=== PATIENT | male | born 2000 | race Caucasian/White ===

== ENCOUNTER 2024-08-18 02:29 | Inpatient (IN) ==
--- NOTE | 2024-08-18 03:16 | Emergency Department Note ---
ED DC CONDITION Conditon at Discharge Condition at Discharge: Good Impression & Plan Schizophrenia ED Provider Note Name: BRAULIO MONTOYA Age: 24 Sex: Male Arrives Via: Walk-In Informant: [Patient][] ED Provider: Donato Garcia MD Chief Complaint: [] Impression: [] Medical Decision Makin-year-old gentleman arrives for mental health evaluation. Patient decompensating schizophrenia as an outpatient. Increasing bizarre behavior and parents are highly concerned regarding this. Patient is agreeable to hospitalization. Medically he is cleared at this time. He did recently have significant trauma that he inflicted on himself by running in the [place]. He had an L2-L3 compression fracture which he reports did not have any restrictions surrounding it. He does not need to wear a brace. He furthermore has a significant number of fractures of the right foot for which she is wearing a boot. There is no metal in the boot. Laboratory workup does show mildly elevated white blood cell count. I think this is consistent with the fact that he has been acting somewhat erratically not eating and drinking as well. Reportedly has had some on and off vomiting the last few weeks. On examination he has a soft nontender abdomen and is in no distress. He is eating and drinking while here in the department in no distress. I do not feel that there is clear evidence of infection. He has no fevers or other concerning signs or symptoms. Urinalysis does not show an infection. He has clear lungs. Patient with soft, non-tender abdomen. Unclear why patient may have been vomiting periodically but no vomiting here and given he is currently drinking without issue and has soft abdomen no emergent indication for work-up of this at this time. Potassium is just mildly below normal at 3.3. He does replaced with 20 millequivalents potassium. I think it is reasonable to have patient hospitalized. Signed out to morning provider. Triage/Nursing Notes reviewed by Me External Chart Review by me: no previous Differential:Mood disorder, infection, hypoglycemia, electrolyte abnormalities, cardiac sources, intracerebral event, toxicologic, trauma, neurologic, as well as other pathologies. Vital Signs: reviewed and remarkable for no significant abnormalities Interventions: potassium 20 meq Labs:ED labs Reviewed by me and remarkable for mild hypokalemia Consults:Mental health case management evaluated patient and feel it is reasonable to have inpatient management. Plan: Disposition: Signed out to morning physician Condition: Good History of Present Illness: 24-year-old male arrives for mental health evaluation. Patient recently hospitalized for mental health management following a suicide attempt in which he both broke his foot and back and sustained lacerations to his face. He had been hospitalized for roughly 9 days and discharged 2 days ago. Diagnosis of schizophrenia. On Seroquel. Had been on Abilify in the hospital but is no longer. Since getting home patient with somewhat erratic behavior unstable and parents are feeling very unsafe for him in the house. They note his frequent turning off of all electrical appliances and unplugging things, piling things throughout the house, going out to the yard and picking pieces of grass. They are highly concerned that he is at risk of further harm to himself similar to 2 weeks ago. Patient denies any specific complaints at this time beyond some back discomfort.. Does admit to marijuana use. Admits cigarette use. Denies any other drug or alcohol use. He denies attempting to harm self anything further. Past Medical History: Schizophrenia Home Medications: Seroquel Allergies: No known drug allergy Vitals:Blood Pressure: 138/77, Pulse 112, RR 17, T 36.8C, O2 100% on RA Physical Exam: GENERAL: Patient is distant appearing and in minimal distress. RESPIRATORY: No dyspnea. Clear to auscultation and equal bilaterally. CARDIOVASCULAR: Regular rate and rhythm.No murmur appreciated. GASTROINTESTINAL: Abdomen soft, non-tender, no peritonitis. EXTREMITIES: Normal motion all extremities, no cyanosis, no edema. NEUROLOGIC: Alert and oriented. No focal neurologic deficits appreciated SKIN: No rash, no jaundice, no diaphoresis. PSYCH: Patient is a bit distant with odd affect. He is denying any hallucinations or suicidal ideation or homicidal ideation. GCS: 15 ED Course: Times/Reassessments: Patient stable. He has a very unusual affect he is frequently asking for more water and coffee to drink though is relatively easily redirectable. Donato Garcia MD Past Med/Surg History Problem List (Updated 08/19/24 @ 03:04 by Donato Garcia MD) Foot fracture, right Fracture of lumbar spine Unspecified psychosis not due to a substance or known physiological condition Schizophrenia (Acute) Cannabis use disorder, severe, in early remission Social History Smoking Status: Current every day smoker Preferred Language: Croatian Communication Ability: Effective Stone Cutter Required: No Beliefs That Will Affect Care: None Feels Safe at Home: Yes Gender Identity: Male Assistive Devices: Brace/Splint/Immobilizer Assistive Devices Comment: BOOT ON RIGHT FOOT D/T CLOSED FRACTURE Allergies Allergies Allergy/AdvReac Type Severity Reaction Status Date / Time No Known Allergies Allergy Unverified 04/16/23 10:55 Home Meds Home Medications Medication Instructions Recorded Confirmed famotidine 20 mg tablet 20 mg PO DAILY 08/18/24 08/18/24 propranolol 20 mg tablet 20 mg PO DAILY 08/18/24 08/18/24 quetiapine 100 mg tablet 100 mg PO HS 08/18/24 08/18/24 quetiapine 25 mg tablet (Seroquel) 25 mg PO BID 08/18/24 08/18/24 Results & Data (ED) Vital Signs Vital Signs - 24 hr 08/18/24 06:33 08/18/24 07:37 Pulse Rate [Finger] 99 H 97 H Respiratory Rate 18 16 Respiratory Effort / Characteristics Non-Labored Spontaneous Non-Labored Spontaneous Respiratory Depth Normal Normal Respiratory Pattern Regular Blood Pressure [Right Arm] 132/75 145/81 H Blood Pressure Mean [Right Arm] 94 102 Blood Pressure Position [Right Arm] Lying Pulse Oximetry 97 99 Oxygen Delivery Method Room Air Room Air Laboratory Data 08/18/24 03:00 08/18/24 03:00 Lab Results 08/18/24 08/18/24 Range/Units 02:00 03:00 WBC 12.79 H (4.8-10.8) K/ul RBC 4.58 L (4.70-6.10) M/uL Hgb 14.2 (14.0-18.0) g/dl Hct 40.8 L (42.0-52.0) % MCV 89.1 (80.0-100.0) fL MCH 31.0 (25.0-34.0) pg MCHC 34.8 (32.0-36.0) g/dL RDW Std Deviation 40.0 (36.4-46.3) fL RDW Coeff of Teja 12.3 (11.5-14.5) % Plt Count 382 (130-400) K/uL MPV 9.2 L (9.4-12.4) fL Immature Gran % (Auto) 0.5 % Neut % (Auto) 74.8 % Lymph % (Auto) 14.5 % [place] % (Auto) 9.6 % Eos % (Auto) 0.2 % Baso % (Auto) 0.4 % Neut # (Auto) 9.56 H (1.40-6.50) K/uL Lymph # (Auto) 1.85 (1.20-3.40) K/uL [place] # (Auto) 1.23 H (0.11-0.59) K/uL Eos # (Auto) 0.03 (0.00-0.50) K/uL Baso # (Auto) 0.05 (0.00-0.20) K/uL Immature Gran # (Auto) 0.07 (0.01-0.20) K/uL Sodium 136 (136-145) mmol/L Potassium 3.3 L (3.5-5.1) mmol/L Chloride 96 L (98-107) mmol/L Carbon Dioxide 31 (21-32) mmol/L Anion Gap 9 (3-11) BUN 11 (6-23) mg/dl Creatinine 0.82 (0.6-1.4) mg/dl Est Cr Clr Drug Dosing 158.9 ml/min eGFR 125.80 BUN/Creatinine Ratio 13.4 (10-20) Glucose 113 H (70-99(Fasting)) mg/dl Calcium 9.5 (8.6-10.3) mg/dl Total Bilirubin 0.7 (0.2-1.0) mg/dl AST 36 (13-39) U/L ALT 23 (7-52) U/L Alkaline Phosphatase 100 (34-104) U/L Total Protein 7.5 (6.0-8.3) gm/dl Albumin 4.7 (3.4-5.0) gm/dl Globulin 2.8 (2.5-4.0) gm/dl Albumin/Globulin Ratio 1.7 (0.9-2) TSH 0.586 (0.300-4.500) uIu/ml Urine Color Yellow Urine Appearance Clear (Clear) Urine pH 7.5 (4.5-7.5) Ur Specific [place] 1.004 (1.000-1.030) Urine Protein Negative (Negative) Urine Glucose (UA) Negative (Negative) Urine Ketones Negative (Negative) Urine Blood Negative (Negative) Urine Nitrite Negative (Negative) Urine Bilirubin Negative (Negative) Urine Urobilinogen Negative (Negative) Ur Leukocyte Esterase Negative (Negative) Salicylates < 3.0 L (3.0-30) mg/dl Urine Opiates Screen Neg (Neg) Ur Methadone, Qual Neg (Neg) Urine Fentanyl Screen Neg (Neg) Acetaminophen < 3 L (10-30) ug/ml Urine Barbiturates Neg (Neg) Ur Phencyclidine (PCP) Neg (Neg) U Amphetamin/Meth Scrn Neg (Neg) MDMA (Ecstasy) Screen Neg (Neg) U Benzodiazepines Scrn Neg (Neg) Ur Cocaine Metabolite Neg (Neg) U Marijuana (THC) Screen Neg (Neg) Ethyl Alcohol mg/dL < 10.0 (<10.0) mg/dl SARS-CoV-2, RNA, NAAT NEGATIVE (NEGATIVE) Administered Medications Acetaminophen (Acetaminophen 325 Mg Tab) 650 mg PO Q4H PRN PRN Reason: Headache or Minor Fever Stop: 09/17/24 10:07 Last Admin: 08/18/24 16:56 Dose: 650 mg Documented By: RB Aripiprazole (Aripiprazole 5 Mg Tab) 5 mg PO [facility] Stop: 09/17/24 14:59 Last Admin: 08/18/24 15:25 Dose: 5 mg Documented By: MENDEZ Nicotine (Nicotine 14 Mg/24 Hr Patch) 1 patch TD [facility] Stop: 09/17/24 13:29 Last Admin: 08/18/24 13:55 Dose: 1 patch Documented By: LORELEI Ondansetron HCl (Ondansetron 4 Mg Od Tab) 4 mg PO Q6H PRN PRN Reason: Nausea Stop: 09/17/24 11:26 Last Admin: 08/18/24 20:07 Dose: 4 mg Documented By: Admin: 08/18/24 11:48 Dose: 4 mg Documented By: LORELEI Discontinued Medications Potassium Chloride (Potassium Chloride Crtab 20 Meq Tabcr) 20 meq PO NOW STA Stop: 08/18/24 06:33 Last Admin: 08/18/24 06:50 Dose: 20 meq Documented By: Discharge Plan Visit Data Chief Complaint: Mental Health Evaluation Stated Complaint: MHE ED Provider: Everett Santos Discharge Problem: Schizophrenia Patient Disposition: Admitted As Inpatient Condition: Good Discharge Instructions Interventions: ED Discharge Assessment Last Done: 08/18/24 09:17
[2024-08-18 03:31] LABS: Basophils # (auto) 0.05 K/uL (0.00-0.20); Basophils % (auto) 0.4 %; Eosinophils # (auto) 0.03 K/uL (0.00-0.50); Eosinophils % (auto) 0.2 %; Hematocrit (blood only) 40.8 % (42.0-52.0); Hemoglobin 14.2 g/dl (14.0-18.0); Immature Granulocytes # (auto) 0.07 K/uL (0.01-0.20); Immature Granulocytes % (auto) 0.5 %; Lymphocytes # (auto) 1.85 K/uL (1.20-3.40); Lymphocytes % (auto) 14.5 %; Mean Corpuscular Hgb Conc 34.8 g/dL (32.0-36.0); Mean Corpuscular Volume 89.1 fL (80.0-100.0); Mean Platelet Volume 9.2 fL (9.4-12.4); Monocytes # (auto) 1.23 K/uL (0.11-0.59); Monocytes % (auto) 9.6 %; Neutrophils # (auto) 9.56 K/uL (1.40-6.50); Neutrophils % (auto) 74.8 %; Platelet Count 382 K/uL (130-400); RDW Coefficient of Variation 12.3 % (11.5-14.5); Red Blood Count 4.58 M/uL (4.70-6.10); White Blood Count 12.79 K/ul (4.8-10.8)
[2024-08-18 03:37] LABS: Appearance Urine Clear (Clear); Bilirubin Urine Negative (Negative); Blood Urine Negative (Negative); Color Urine Yellow; Glucose Urine UA Negative (Negative); Ketones Urine Negative (Negative); Leukocyte Esterase Urine Negative (Negative); Nitrite Urine Negative (Negative); Protein Urine Negative (Negative); Specific Gravity Urine 1.004 (1.000-1.030); Urobilinogen Urine Negative (Negative); pH Urine 7.5 (4.5-7.5)
[2024-08-18 03:50] LABS: Albumin Globulin Ratio 1.7 (0.9-2); Albumin Level 4.7 gm/dl (3.4-5.0); BUN Creatinine Ratio 13.4 (10-20); Bilirubin,Total 0.7 mg/dl (0.2-1.0); Calcium 9.5 mg/dl (8.6-10.3); Creatinine Clr Calc Pharmacy 158.9 ml/min; Globulin 2.8 gm/dl (2.5-4.0); Potassium 3.3 mmol/L (3.5-5.1); Total Protein 7.5 gm/dl (6.0-8.3)
[2024-08-18 03:51] LABS: Acetaminophen < 3 ug/ml (10-30); Salicylate < 3.0 mg/dl (3.0-30)
[2024-08-18 04:02] LABS: Thyroid Stimulating Hormone 0.586 uIu/ml (0.300-4.500)
[2024-08-18 04:09] LABS: Amphetamines+Metham, Urine Neg (Neg); Barbiturates, Urine Neg (Neg); Benzodiazepine, Urine Neg (Neg); Cocaine, Urine Neg (Neg); Fentanyl, Urine Neg (Neg); MDMA (Ecstacy), Urine Neg (Neg); Marijuana, Urine Neg (Neg); Methadone, Urine Neg (Neg); Opiate, Urine Neg (Neg); Phencyclidine, Urine Neg (Neg)
[2024-08-18] MEDS: POTASSIUM CHLORIDE CRTAB 20 MEQ TABCR PO STA (06:50)
--- NOTE | 2024-08-18 09:00 | Emergency Department Note ---
ED Visit Note The patient was taken in signout from Dr. Garcia at the change of shift. Please see that note for details. The patient was pending mental health evaluation for psychotic behavior. Patient has a history of psychosis. He was recently discharged from [facility] inpatient [facility] 2 days ago. Patient was evaluated by [address] [place] [address] and was accepted for inpatient treatment. I refer you to the EMR for further details. .
[2024-08-18] MEDS ORDERED: SODIUM CHLORIDE 0.65% NA SOLN 45 ML (OCEAN) PRN (10:08)
[2024-08-18] MEDS ORDERED: ALUMINUM/MAGNESIUM SUSP 30 ML UDC PO PRN (10:08)
[2024-08-18] MEDS ORDERED: BISMUTH SUBSALICYLATE 262 MG CHEW PO PRN (10:08)
[2024-08-18] MEDS: ONDANSETRON 4 MG OD TAB PO PRN (11:48)
[2024-08-18] MEDS ORDERED: NICOTINE POLACRILEX 2 MG GUM MT PRN (13:27)
[2024-08-18] MEDS: NICOTINE 14 MG/24 HR PATCH TD SCH (13:55)
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
[2024-08-18] MEDS: ARIPiprazole 5 MG TAB PO SCH (15:25)
[2024-08-18] MEDS: ACETAMINOPHEN 325 MG TAB PO PRN (16:56)
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
[2024-08-20] MEDS: ARIPiprazole 10 MG TAB PO SCH (07:35)
[2024-08-20 07:53] LABS: Chol HDL Ratio 2.6 (0-5)
[2024-08-20 09:40] LABS: Estimated Average Glucose 108 mg/dl; Hemoglobin A1C 5.4 % (4.5-5.6)
[2024-08-20] MEDS: hydrOXYzine HCl 25 MG TAB PO PRN (13:31)
--- NOTE | 2024-08-20 14:25 | Psychiatric Progress Note ---
Date of Service August 20, 2024 Impression / Recommendations Impression By history, Schizophrenia r/o Cannabis Induced Psychosis. Cannabis Use disorder severe in early remission. (1) Cannabis use disorder, severe, in early remission: (2) Schizophrenia: Plan 08/19/24: Continue Abilify 10 mg daily with plan to titrate the dose and convert to OROPEZA if effective. Continue to monitor fluid intake for now. 08/18/24: Admit to [facility]. Observation: moderate; q15 minute checks. Individual, group and milieu therapy. Standard prns. Resume Abilify at 5mg daily with plan to titrate. If effective, will consider converting this to OROPEZA. Hold Seroquel for now. For vomiting, ordered Zofran 4 mg prn vomiting. Obtain collateral information from mother when pt is available. Overall, I spent a total of 40 minutes on this case including meeting with the patient, reviewing the chart, nursing report, placing orders, gathering collateral and documentation. Suicide Risk Level Suicide Risk Level: Low (q15 min observation checks) Risk Factors Assessment Male: Yes : Yes Do You Have Access To A Gun?: No Health Problems: Yes Mental Health Diagnoses: Yes Substance Use Disorders: Yes Previous Attempt: Yes Family History of Suicide: No Previous Psychiatric Hospitalization: Yes Hopelessness: No Protective Factors Assessment Buddhist Beliefs: No : No Responsible for Young Children: No Employed: No Stable Relationships: Yes Supportive Family: Yes Good Rapport with Provider: Yes Absence of Any Risk Factors Above: No Interval History Identifying Information 24-year-old M who currently lives in [place], [place] with his mother, Sharon ([id number]). He has a history of Schizophrenia and was admitted on 08/18/24 09:25 on a [201 voluntary] commitment for bizarre behavior. Chief Complaint "I am feeling ok". Review of Systems Sleep Information Total Hours of Sleep: 4.5 Sleep Comments: Awoke early in morning Meal Information Percent Meal Consumed - Breakfast: 20 Percent Meal Consumed - Lunch: 0 Percent Meal Consumed - Dinner: 0 Nutrition Comment: pt. declines. Meals dates, labeled and refrigerated. Subjective Subjective Patient was seen & assessed and interval progress reviewed with nursing. He slept well and reports no pain. He remains internally preoccupied, spends a lot of time pacing the unit on his own with headphones on, is guarded, seclusive, with limited participation in unit activities. Denied thoughts of harm to self or others at this time. Denied hallucinations. He is less vague about events leading up to his admission. He denies side effects of his current medication. No further reports of excessive fluid intake. HBA1c and Lipid profile wnl. No further episodes of vomiting. No signs of EPS or akathisia. Pt withdrew the 72 hour notice. Physical Exam Mental Examination Appearance: Disheveled (Wearing a boot on his right leg/foot. Appears internally preoccupied. ) Eye Contact: Maintains Eye Contact Motor Behavior: Unremarkable (Pacing the unit. ) Speech: Soft and Delayed Mood: Anxious Affect: Apprehensive, Flat, Inappropriate and Withdrawn Thought Process: Disorganized, Poverty of Content and Slowed Thinking Hallucinations: None Insight: Poor Judgement: Poor Vital Signs (Past 24 Hours) Last Vital Signs Temp 36.7 C 08/20/24 06:21 Pulse 86 08/20/24 06:23 Resp 18 08/20/24 06:21 BP 127/78 08/20/24 06:23 Pulse Ox 99 08/19/24 13:23 O2 Del Method Room Air 08/19/24 13:23 Results & Data ([facility]) Laboratory Results Laboratory Results - last 24 hr 08/20/24 07:01 Estimat Average Glucose 108 Hemoglobin A1c 5.4 Triglycerides 93 Cholesterol 128 LDL Cholesterol, Calc 60 VLDL Cholesterol, Calc 19 HDL Cholesterol 49 Cholesterol/HDL Ratio 2.6 Current Inpatient Medications Current Inpatient Medications: Current Inpatient Medications Acetaminophen (Acetaminophen 325 Mg Tab) 650 mg PO Q4H PRN PRN Reason: Headache or Minor Fever Stop: 09/17/24 10:07 Last Admin: 08/20/24 09:02 Dose: 650 mg Al Hydrox/Mg Hydrox/Simethicone (Aluminum/Magnesium Susp 30 Ml Udc) 30 ml PO Q4H PRN PRN Reason: GI Upset Stop: 09/17/24 10:07 Aripiprazole (Aripiprazole 10 Mg Tab) 10 mg PO QAM POWER Stop: 09/19/24 08:59 Last Admin: 08/20/24 07:35 Dose: 10 mg Bismuth Subsalicylate (Bismuth Subsalicylate 262 Mg Chew) 2 tab PO Q30M PRN PRN Reason: Loose Stool/Diarrhea Stop: 09/17/24 10:07 Hydroxyzine HCl (Hydroxyzine Hcl 25 Mg Tab) 50 mg PO HSZ PRN PRN Reason: Insomnia Stop: 09/17/24 10:07 Hydroxyzine HCl (Hydroxyzine Hcl 25 Mg Tab) 25 mg PO Q4H PRN PRN Reason: Anxiety Stop: 09/17/24 10:07 Last Admin: 08/20/24 13:31 Dose: 25 mg Magnesium Hydroxide (Magnesium Hydroxide Susp 30 Ml Udc) 30 ml PO DAILY PRN PRN Reason: Constipation Stop: 09/17/24 10:07 Miscellaneous (Remove Nicoderm Patch) 1 each N/A DAILY@0859 [facility] Stop: 09/18/24 08:58 Last Admin: 08/20/24 07:35 Dose: 1 each Nicotine (Nicotine 14 Mg/24 Hr Patch) 1 patch TD QAM [facility] Stop: 09/17/24 13:29 Last Admin: 08/20/24 07:35 Dose: 1 patch Nicotine Polacrilex (Nicotine Polacrilex 2 Mg Gum) 1 piece MT Q2H PRN PRN Reason: smoking cessation Stop: 09/17/24 13:26 Ondansetron HCl (Ondansetron 4 Mg Od Tab) 4 mg PO Q6H PRN PRN Reason: Nausea Stop: 09/17/24 11:26 Last Admin: 08/19/24 13:26 Dose: 4 mg Sodium Chloride (Sodium Chloride 0.65% Na Soln 45 Ml ([place])) 1 - 2 sprays NA PRN PRN PRN Reason: Nasal Dryness/Congestion Stop: 09/17/24 10:07 Mental Health & Subst Abuse Tx Psychiatrist Date Of Appointment With Psychiatric Provider: Therapist Name of Therapist: None Chief Ii Dispatcher Name of Chief Ii Dispatcher: None (2) Schizophrenia Schizophrenia type: unspecified Qualified Code(s): F20.9 - Schizophrenia, unspecified
[2024-08-21 10:40] LABS: Basophils # (auto) 0.05 K/uL (0.00-0.20); Basophils % (auto) 0.4 %; Eosinophils # (auto) 0.03 K/uL (0.00-0.50); Eosinophils % (auto) 0.2 %; Hematocrit (blood only) 42.2 % (42.0-52.0); Hemoglobin 14.3 g/dl (14.0-18.0); Immature Granulocytes # (auto) 0.07 K/uL (0.01-0.20); Immature Granulocytes % (auto) 0.5 %; Lymphocytes # (auto) 2.19 K/uL (1.20-3.40); Lymphocytes % (auto) 16.4 %; Mean Corpuscular Hemoglobin 30.8 pg (25.0-34.0); Mean Corpuscular Hgb Conc 33.9 g/dL (32.0-36.0); Mean Corpuscular Volume 90.8 fL (80.0-100.0); Mean Platelet Volume 8.9 fL (9.4-12.4); Monocytes # (auto) 1.36 K/uL (0.11-0.59); Monocytes % (auto) 10.2 %; Neutrophils # (auto) 9.62 K/uL (1.40-6.50); Neutrophils % (auto) 72.3 %; Platelet Count 410 K/uL (130-400); RDW Coefficient of Variation 12.5 % (11.5-14.5); RDW Standard Deviation 41.2 fL (36.4-46.3); Red Blood Count 4.65 M/uL (4.70-6.10); White Blood Count 13.32 K/ul (4.8-10.8)
[2024-08-21 10:56] LABS: Albumin Globulin Ratio 1.8 (0.9-2); Albumin Level 4.9 gm/dl (3.4-5.0); Bilirubin,Total 0.5 mg/dl (0.2-1.0); Calcium 9.7 mg/dl (8.6-10.3); Creatinine Clr Calc Pharmacy 151.6 ml/min; Globulin 2.7 gm/dl (2.5-4.0); Potassium 3.7 mmol/L (3.5-5.1); Total Protein 7.6 gm/dl (6.0-8.3)
--- NOTE | 2024-08-21 11:24 | Hospitalist Consultation ---
Date of Consultation August 21, 2024 Assessment & Plan (1) Nausea & vomiting: Plan 24 yr M w/ PMHx of schizophrenia and severe cannabis admittied for acute psychotic episode. Patient has N/V, likely due to constipation and unlikely to be d/t cannabis since patient discontinued his marijuana use over a month ago and had a lack of sx while smoking #Nausea/Vomiting - begin 17g Miralax PO daily as tolerated - continue Zofran PRN for nausea - monitor for worsening of symptoms Supervising Physician Co-Signing Physician Notes I personally examined the patient and verified all parks points of history and exam, discussed case, and agree with decision making with Dr Muniz and Mike Ng MS4 vomiting on Wednesday. None since. Somewhat constipated but did have a bowel movement this morning. Notes that he is eating and drinking a bit. No abdominal pain. Vitals noted, in general he is awake and alert pleasant no distress. He is walking the halls whenever I first entered the unit. Abdomen is soft no epigastric tenderness no focal tenderness anywhere no guarding rebound or rigidity. Maybe mild fullness left lower abdomen but without tenderness nausea/vomitingseems to be improving. While cannabis hyperemesis is on the differential, he relates no cannabis use in a month and typically even refractory cases resolve with a month of abstinence. He does note constipation, which is certainly a common cause of nausea and vomitinghe did have a bowel movement todaytherefore while we will utilize MiraLAX to help stay ahead of further constipation, we probably will not need to be very aggressive with it. Start with 17 g dailytitrate as needed. Serial exams, follow p.o. intake. Otherwise as above. History of Present Illness Reason for Consultation: N/V Requesting Physician: Annie Farrar MD Attending Physician: Annie Farrar MD History of Present Illness Pt is a 24 yr M w/ PMHx of schizophrenia and severe cannabis use, currently admitted for acute psychosis episode. Patient has been experiencing nausea and vomiting for a few days prior to admission, with his most recent episode of vomiting being the day of admission (08/19/2023). Nurses mention the vomiting has been intense and projectile, and that patient has caused himself a nosebleed due to the force of vomiting. He says the nausea improves following a hot shower and after bowel movements. He has a history of severe cannabis use, but mentions he has not used in over a month. He has also been constipated, and had his last bowel movement this morning. He denies hematemesis, melena/hematochezia, lightheadedness, abdominal pain, acid reflux. Allergies Allergy/AdvReac Type Severity Reaction Status Date / Time No Known Allergies Allergy Unverified 04/16/23 10:55 Home Medications Medication Instructions Recorded Confirmed Type famotidine 20 mg tablet 20 mg PO DAILY 08/18/24 08/18/24 History propranolol 20 mg tablet 20 mg PO DAILY 08/18/24 08/18/24 History quetiapine 100 mg tablet 100 mg PO HS 08/18/24 08/18/24 History quetiapine 25 mg tablet (Seroquel) 25 mg PO BID 08/18/24 08/18/24 History Patient History Social History Smoking Status: Current every day smoker Preferred Language: Portuguese Communication Ability: Effective Hourly Shift Required: No Beliefs That Will Affect Care: None Feels Safe at Home: Yes Gender Identity: Male Assistive Devices: Brace/Splint/Immobilizer Assistive Devices Comment: BOOT ON RIGHT FOOT D/T CLOSED FRACTURE Review of Systems Review of Systems: All systems reviewed & are unremarkable except as noted in HPI & below Physical Exam Respiratory: normal respiratory effort, lungs clear to auscultation Cardiovascular: RRR, no murmur, no edema Gastrointestinal (Abdomen): normal bowel sounds, soft, nontender, no hepatosplenomegaly Results & Data Results & Data Vital Signs (Past 12 Hours) Vital Signs Temp Pulse Resp BP 08/21/24 06:22 120 H 125/76 08/21/24 06:20 36.5 C 98 H 18 133/84 Resident Supervision Co-Signing Physician Notes I personally examined the patient and verified all parks points of history and exam, discussed case, and agree with decision making with Mike Ng MS4 PE: well appearing, slightly blunted affect, no peritoneal signs Anticipate resolution with MiraLAX. Further work up if symptoms persist. Resident Activity Tracking Resident Involvement: Resident Care Provided Care Provided: Adult [facility] Medicine
--- NOTE | 2024-08-21 11:29 | Billing Data ---
Date of Service August 21, 2024 Coding Level of Care Code 54150 IN/OBS CONSULT LVL 3,45M
[2024-08-21] MEDS: POLYETHYLENE (MIRALAX) 17 GM PACK PO SCH (12:39)
--- NOTE | 2024-08-21 14:21 | Psychiatric Progress Note ---
Date of Service August 21, 2024 Impression / Recommendations Impression By history, Schizophrenia. Baseline unclear as pt has not been free of psychosis for several years, according to his mother's report. r/o Cannabis Induced Psychosis. Cannabis Use disorder severe in early remission. (1) Cannabis use disorder, severe, in early remission: (2) Schizophrenia: Plan 08/21/24: Increase Abilify to 15mg po daily. Have discussed conversion to OROPEZA; pt indicated willingness to do so. Hospitalist consult noted with thanks. "Patient has N/V, likely due to constipation and unlikely to be d/t cannabis since patient discontinued his marijuana use over a month ago and had a lack of sx while smoking #Nausea/Vomiting - begin 17g Miralax PO daily as tolerated - continue Zofran PRN for nausea - monitor for worsening of symptoms" 08/20/24: continue current medication. 08/19/24: Continue Abilify 10 mg daily with plan to titrate the dose and convert to OROPEZA if effective. Continue to monitor fluid intake for now. 08/18/24: Admit to [facility]. Observation: moderate; q15 minute checks. Individual, group and milieu therapy. Standard prns. Resume Abilify at 5mg daily with plan to titrate. If effective, will consider converting this to OROPEZA. Hold Seroquel for now. For vomiting, ordered Zofran 4 mg prn vomiting. Obtain collateral information from mother when pt is available. Overall, I spent a total of 40 minutes on this case including meeting with the patient, reviewing the chart, nursing report, placing orders, gathering collateral and documentation. Suicide Risk Level Suicide Risk Level: Low (q15 min observation checks) Risk Factors Assessment Male: Yes : Yes Do You Have Access To A Gun?: No Health Problems: Yes Mental Health Diagnoses: Yes Substance Use Disorders: Yes Previous Attempt: Yes Family History of Suicide: No Previous Psychiatric Hospitalization: Yes Hopelessness: No Protective Factors Assessment Shinto Beliefs: No : No Responsible for Young Children: No Employed: No Stable Relationships: Yes Supportive Family: Yes Good Rapport with Provider: Yes Absence of Any Risk Factors Above: No Interval History Identifying Information 24-year-old M who currently lives in [place], [place] with his mother, Sharon ([id number]). He has a history of Schizophrenia and was admitted on 08/18/24 09:25 on a [201 voluntary] commitment for bizarre behavior. Chief Complaint "I feel I want to leave". Review of Systems Sleep Information Total Hours of Sleep: 6.5 Sleep Comments: Awoke early in morning Meal Information Percent Meal Consumed - Breakfast: 90 Percent Meal Consumed - Lunch: 90 Percent Meal Consumed - Dinner: 0 Nutrition Comment: pt. declines. Meals dates, labeled and refrigerated. Subjective Subjective Patient was seen & assessed and interval progress reviewed with treatment team. He remains internally preoccupied, pacing the halls, continually. Denied suicidal thoughts and "does not know why" he threw himself against a wall prior to his last admision. Denied current mood symptoms or hallucinations. He is less vague and more interactive with this proposal writer. Staff report he slept well. Peripherally engaged in groups. Social visit went well. Hospitalist consult requested due to projectile vomiting and persistent nausea (predated admission). Pt is willing to try Abilify OROPEZA. He filed another 72 hour notice yesterday. Physical Exam Mental Examination Appearance: Well Groomed (Wearing headphones, internally preoccupied.) Eye Contact: Maintains Eye Contact Motor Behavior: Pacing Speech: Normal and Soft Mood: Anxious Affect: Flat and Withdrawn Thought Process: Goal Oriented, Linear and Poverty of Content Thought Content: Linear Hallucinations: None Insight: Poor Judgement: Poor Vital Signs (Past 24 Hours) Last Vital Signs Temp 36.5 C 08/21/24 06:20 Pulse 120 H 08/21/24 06:22 Resp 18 08/21/24 06:20 BP 125/76 08/21/24 06:22 Pulse Ox 99 08/19/24 13:23 O2 Del Method Room Air 08/19/24 13:23 Results & Data ([facility]) Laboratory Results Laboratory Results - last 24 hr 08/21/24 10:23 WBC 13.32 H RBC 4.65 L Hgb 14.3 Hct 42.2 MCV 90.8 MCH 30.8 MCHC 33.9 RDW Std Deviation 41.2 RDW Coeff of Teja 12.5 Plt Count 410 H MPV 8.9 L Immature Gran % (Auto) 0.5 Neut % (Auto) 72.3 Lymph % (Auto) 16.4 [place] % (Auto) 10.2 Eos % (Auto) 0.2 Baso % (Auto) 0.4 Neut # (Auto) 9.62 H Lymph # (Auto) 2.19 [place] # (Auto) 1.36 H Eos # (Auto) 0.03 Baso # (Auto) 0.05 Immature Gran # (Auto) 0.07 Sodium 138 Potassium 3.7 Chloride 99 Carbon Dioxide 33 H Anion Gap 6 BUN 12 Creatinine 0.86 Est Cr Clr Drug Dosing 151.6 eGFR 124.00 BUN/Creatinine Ratio 14.0 Glucose 107 H Calcium 9.7 Total Bilirubin 0.5 AST 46 H ALT 26 Alkaline Phosphatase 126 H Total Protein 7.6 Albumin 4.9 Globulin 2.7 Albumin/Globulin Ratio 1.8 Lipase 15 Current Inpatient Medications Current Inpatient Medications: Current Inpatient Medications Acetaminophen (Acetaminophen 325 Mg Tab) 650 mg PO Q4H PRN PRN Reason: Headache or Minor Fever Stop: 09/17/24 10:07 Last Admin: 08/21/24 08:02 Dose: 650 mg Al Hydrox/Mg Hydrox/Simethicone (Aluminum/Magnesium Susp 30 Ml Udc) 30 ml PO Q4H PRN PRN Reason: GI Upset Stop: 09/17/24 10:07 Aripiprazole (Aripiprazole 10 Mg Tab) 10 mg PO QAM [facility] Stop: 09/19/24 08:59 Last Admin: 08/21/24 08:42 Dose: 10 mg Bismuth Subsalicylate (Bismuth Subsalicylate 262 Mg Chew) 2 tab PO Q30M PRN PRN Reason: Loose Stool/Diarrhea Stop: 09/17/24 10:07 Hydroxyzine HCl (Hydroxyzine Hcl 25 Mg Tab) 50 mg PO HSZ PRN PRN Reason: Insomnia Stop: 09/17/24 10:07 Hydroxyzine HCl (Hydroxyzine Hcl 25 Mg Tab) 25 mg PO Q4H PRN PRN Reason: Anxiety Stop: 09/17/24 10:07 Last Admin: 08/21/24 10:25 Dose: 25 mg Magnesium Hydroxide (Magnesium Hydroxide Susp 30 Ml Udc) 30 ml PO DAILY PRN PRN Reason: Constipation Stop: 09/17/24 10:07 Miscellaneous (Remove Nicoderm Patch) 1 each N/A DAILY@0859 [facility] Stop: 09/18/24 08:58 Last Admin: 08/21/24 08:47 Dose: 1 each Nicotine (Nicotine 14 Mg/24 Hr Patch) 1 patch TD QAM [facility] Stop: 09/17/24 13:29 Last Admin: 08/21/24 08:46 Dose: Not Given Nicotine Polacrilex (Nicotine Polacrilex 2 Mg Gum) 1 piece MT Q2H PRN PRN Reason: smoking cessation Stop: 09/17/24 13:26 Ondansetron HCl (Ondansetron 4 Mg Od Tab) 4 mg PO Q6H PRN PRN Reason: Nausea Stop: 09/17/24 11:26 Last Admin: 08/19/24 13:26 Dose: 4 mg Polyethylene Glycol (Polyethylene (Miralax) 17 Gm Pack) 17 gm PO DAILY POWER Stop: 09/20/24 10:14 Last Admin: 08/21/24 12:39 Dose: 17 gm Sodium Chloride (Sodium Chloride 0.65% Na Soln 45 Ml ([place])) 1 - 2 sprays NA PRN PRN PRN Reason: Nasal Dryness/Congestion Stop: 09/17/24 10:07 Mental Health & Subst Abuse Tx Psychiatrist Name of Psychiatrist: Carlos Marshall Date Of Appointment With Psychiatric Provider: Therapist Name of Therapist: None Steel Layer Name of Steel Layer: None Post Discharge Appointments Primary Care Physician Name Of Family Doctor/PCP: [facility] (2) Schizophrenia Schizophrenia type: unspecified Qualified Code(s): F20.9 - Schizophrenia, unspecified
[2024-08-21] MEDS: MAGNESIUM HYDROXIDE SUSP 30 ML UDC PO PRN (18:12)
[2024-08-22] MEDS: ARIPiprazole 15 MG TAB PO SCH (09:11)
--- NOTE | 2024-08-22 10:04 | Hospitalist Progress Note ---
Date of Service August 22, 2024 Assessment & Plan (1) Nausea & vomiting: Plan 24 yr M w/ PMHx of schizophrenia and severe cannabis admitted for acute psychotic episode. Patient has N/V, likely due to constipation and unlikely to be d/t cannabis since patient discontinued his marijuana use over a month ago and had a lack of sx while smoking. #Nausea/Vomiting - Miralax PRN as tolerated - continue Zofran PRN for nausea - patient is doing well - hospitalist team will sign off #Mildly Elevated LFT - patient should have outpatient follow up for mildly elevated LFTs - Alk Phos 126, AST 46 Admission and Anticipated Discharge Date Admission Date: August 18, 2024 Supervising Physician Co-Signing Physician Notes I personally examined the patient and verified all parks points of history and exam, discussed case, and agree with decision making with Dr Muniz and Mike Ng MS4 walking in the hallway. Notes that he is eating reasonably well and his belly feels good. Nursing notes that he ate 90% of breakfast and lunch 100% of dinner yesterday. Vitals noted, in general he is awake and alert walking the halls no distress. HEENT normocephalic atraumatic mucous membranes moist. Breathing unlabored no accessory muscle use good effort. Skin without rashes pallor or icterus. nausea/vomitingseems to be improving. While cannabis hyperemesis is on the differential, he relates no cannabis use in a month and typically even refractory cases resolve with a month of abstinence. He does note constipation, which is certainly a common cause of nausea and vomiting Seems that his p.o. intake as well as nausea and vomiting have been improving nicelyespecially after a bowel movement. Would continue MiraLAX at stool softener dosing (17 g daily seems reasonable) and given that he is doing much better, hospitalist team will sign off for now. Will be available as neededcertainly do not hesitate to call if we can be of further assistance. Otherwise as above. Subjective Patient mentions he is doing well, and walking around. Per nurses, he had a bowel movement this morning. Review of Systems Review of Systems: All systems reviewed & are unremarkable except as noted in HPI & below Physical Exam Respiratory: normal respiratory effort, lungs clear to auscultation Cardiovascular: RRR, no murmur, no edema Gastrointestinal (Abdomen): normal bowel sounds, soft, nontender, no hepatosplenomegaly Results & Data Results & Data Vital Signs (Past 12 Hours) Vital Signs Temp Pulse Resp BP 08/22/24 06:20 106 H 127/87 08/22/24 06:19 36.6 C 94 H 18 138/85
[2024-08-22] MEDS: LORazepam 1 MG TAB PO STA (10:28)
--- NOTE | 2024-08-22 11:08 | Psychiatric Progress Note ---
Date of Service August 22, 2024 Impression / Recommendations Impression By history, Schizophrenia. Baseline unclear as pt has not been free of psychosis for several years, according to his mother's report. r/o Cannabis Induced Psychosis. Cannabis Use disorder severe in early remission. Pt has improved significantly from presentation at admission. Despite his limited participation in unit activities (spends most of his time pacing, wearing headphones), and superficial engagement with board writer, pt has been overall cooperative with treatment, taking medication, with mood symptoms, anxiety or medication side effects reported. GI symptoms have subsided. Pt is more present, thought process is goal directed. His responses to questions are direct and informative, not vague and circumstantial as on admission. Pt has consistently denied suicidal ideation, intent or plan. He consented to taking Maintenna. He declined an offer to extend his hospitalization voluntarily to permit observation and further med adjustments if need be. Attempt at referral for case management was not successful due to his insurance. Pt may be discharged tomorrow if he continues to request this. (1) Cannabis use disorder, severe, in early remission: (2) Schizophrenia: Plan 08/22/24: Pacing and mild agitation may be a response to the milieu (agitated peer). Lorazepam PO 1mg now x 1 ordered. Abilify Maintenna 400mg ordered. Administer today and observe overnight. Pt does not currently evidence behavior meeting criteria for a 302. He may be discharged tomorrow with 2 weeks' of Abilify 15 mg PO daily. Recommend follow up with PCP. 08/21/24: Increase Abilify to 15mg po daily. Have discussed conversion to OROPEZA; pt indicated willingness to do so. Hospitalist consult noted with thanks. "Patient has N/V, likely due to constipation and unlikely to be d/t cannabis since patient discontinued his marijuana use over a month ago and had a lack of sx while smoking #Nausea/Vomiting - begin 17g Miralax PO daily as tolerated - continue Zofran PRN for nausea - monitor for worsening of symptoms" 08/20/24: continue current medication. 08/19/24: Continue Abilify 10 mg daily with plan to titrate the dose and convert to OROPEZA if effective. Continue to monitor fluid intake for now. 08/18/24: Admit to [facility]. Observation: moderate; q15 minute checks. Individual, group and milieu therapy. Standard prns. Resume Abilify at 5mg daily with plan to titrate. If effective, will consider converting this to OROPEZA. Hold Seroquel for now. For vomiting, ordered Zofran 4 mg prn vomiting. Obtain collateral information from mother when pt is available. Overall, I spent a total of 40 minutes on this case including meeting with the patient, reviewing the chart, nursing report, placing orders, gathering collateral and documentation. Suicide Risk Level Suicide Risk Level: Low (q15 min observation checks) Risk Factors Assessment Male: Yes : Yes Do You Have Access To A Gun?: No Health Problems: Yes Mental Health Diagnoses: Yes Substance Use Disorders: Yes Previous Attempt: Yes Family History of Suicide: No Previous Psychiatric Hospitalization: Yes Hopelessness: No Protective Factors Assessment Spiritism Beliefs: No : No Responsible for Young Children: No Employed: No Stable Relationships: Yes Supportive Family: Yes Good Rapport with Provider: Yes Absence of Any Risk Factors Above: No Interval History Identifying Information 24-year-old M who currently lives in [place], [place] with his mother, Sharon ([id number]). He has a history of Schizophrenia and was admitted on 08/18/24 09:25 on a [201 voluntary] commitment for bizarre behavior. Chief Complaint "I want to leave tomorrow". Review of Systems Sleep Information Total Hours of Sleep: 5.5 Sleep Comments: Awoke early in morning Meal Information Percent Meal Consumed - Breakfast: 90 Percent Meal Consumed - Lunch: 90 Percent Meal Consumed - Dinner: 100 Subjective Subjective Patient was seen & assessed and interval progress reviewed with nursing and social work. No longer complaining of nausea. No further episodes of vomiting. Pt has not been observed attempting to ingest excessive amounts of fluid as earlier in this admission. Slept only 5 hours and was up early. Observed to be pacing the unit in a repeating pattern and appeared mildly agitated today. Less internally preoccupied. Thought process is goal directed, less vague and with direct, relevant responses to questions. Note elevated wbc of 13, PLT of 410, AST 46, ALT 126. Pt denied any symptoms of illness or infection at this time. Overall, I spent a total of 40 minutes on this case including meeting with the patient, reviewing the chart, nursing report, placing orders, gathering collateral and documentation. Physical Exam Mental Examination Appearance: Well Groomed (Wearing headphones, internally preoccupied.) Eye Contact: Maintains Eye Contact Motor Behavior: Pacing Speech: Normal and Soft Mood: Anxious Affect: Flat and Withdrawn Thought Process: Goal Oriented, Linear and Poverty of Content Thought Content: Linear Hallucinations: None Insight: Poor Judgement: Poor Vital Signs (Past 24 Hours) Last Vital Signs Temp 36.6 C 08/22/24 06:19 Pulse 106 H 08/22/24 06:20 Resp 18 08/22/24 06:19 BP 127/87 08/22/24 06:20 Pulse Ox 99 08/19/24 13:23 O2 Del Method Room Air 08/19/24 13:23 Results & Data ([facility]) Current Inpatient Medications Current Inpatient Medications: Current Inpatient Medications Acetaminophen (Acetaminophen 325 Mg Tab) 650 mg PO Q4H PRN PRN Reason: Headache or Minor Fever Stop: 09/17/24 10:07 Last Admin: 08/21/24 08:02 Dose: 650 mg Al Hydrox/Mg Hydrox/Simethicone (Aluminum/Magnesium Susp 30 Ml Udc) 30 ml PO Q4H PRN PRN Reason: GI Upset Stop: 09/17/24 10:07 Aripiprazole (Aripiprazole 15 Mg Tab) 15 mg PO QAM [facility] Stop: 09/21/24 08:59 Last Admin: 08/22/24 09:11 Dose: 15 mg Bismuth Subsalicylate (Bismuth Subsalicylate 262 Mg Chew) 2 tab PO Q30M PRN PRN Reason: Loose Stool/Diarrhea Stop: 09/17/24 10:07 Hydroxyzine HCl (Hydroxyzine Hcl 25 Mg Tab) 50 mg PO HSZ PRN PRN Reason: Insomnia Stop: 09/17/24 10:07 Hydroxyzine HCl (Hydroxyzine Hcl 25 Mg Tab) 25 mg PO Q4H PRN PRN Reason: Anxiety Stop: 09/17/24 10:07 Last Admin: 08/21/24 10:25 Dose: 25 mg Magnesium Hydroxide (Magnesium Hydroxide Susp 30 Ml Udc) 30 ml PO DAILY PRN PRN Reason: Constipation Stop: 09/17/24 10:07 Last Admin: 08/21/24 18:12 Dose: 30 ml Miscellaneous (Remove Nicoderm Patch) 1 each N/A DAILY@0859 [facility] Stop: 09/18/24 08:58 Last Admin: 08/22/24 09:11 Dose: 1 each Nicotine (Nicotine 14 Mg/24 Hr Patch) 1 patch TD QAM [facility] Stop: 09/17/24 13:29 Last Admin: 08/22/24 09:11 Dose: 1 patch Nicotine Polacrilex (Nicotine Polacrilex 2 Mg Gum) 1 piece MT Q2H PRN PRN Reason: smoking cessation Stop: 09/17/24 13:26 Ondansetron HCl (Ondansetron 4 Mg Od Tab) 4 mg PO Q6H PRN PRN Reason: Nausea Stop: 09/17/24 11:26 Last Admin: 08/19/24 13:26 Dose: 4 mg Polyethylene Glycol (Polyethylene (Miralax) 17 Gm Pack) 17 gm PO DAILY POWER Stop: 09/20/24 10:14 Last Admin: 08/22/24 09:11 Dose: 17 gm Sodium Chloride (Sodium Chloride 0.65% Na Soln 45 Ml ([place])) 1 - 2 sprays NA PRN PRN PRN Reason: Nasal Dryness/Congestion Stop: 09/17/24 10:07 Mental Health & Subst Abuse Tx Psychiatrist Name of Psychiatrist: Carlos Marshall Date Of Appointment With Psychiatric Provider: Therapist Name of Therapist: None Medical Technologist Hematology Name of Medical Technologist Hematology: None Post Discharge Appointments Primary Care Physician Name Of Family Doctor/PCP: [facility] (2) Schizophrenia Schizophrenia type: unspecified Qualified Code(s): F20.9 - Schizophrenia, unspecified
[2024-08-22] MEDS: ARIPiprazole 400 MG PRE-FILLED SYRINGE IM ONE (11:12)
--- NOTE | 2024-08-22 13:03 | Billing Data ---
Date of Service August 22, 2024 Coding Level of Care Code 26526 SUB INP/OBS CARE
[2024-08-22] MEDS: hydrOXYzine HCl 25 MG TAB PO PRN (20:41)
--- NOTE | 2024-08-23 08:56 | Psychiatric Progress Note ---
Date of Service August 23, 2024 Impression / Recommendations Impression By history, Schizophrenia. Baseline unclear as pt has not been free of psychosis for several years, according to his mother's report. r/o Cannabis Induced Psychosis. Cannabis Use disorder severe in early remission. Pt has improved significantly from presentation at admission. Despite his limited participation in unit activities (spends most of his time pacing, wearing headphones), and superficial engagement with remote mortgage underwriter, pt has been overall cooperative with treatment, taking medication, with mood symptoms, anxiety or medication side effects reported. GI symptoms have subsided. Pt is more present, thought process is goal directed. His responses to questions are direct and informative, not vague and circumstantial as on admission. Pt has consistently denied suicidal ideation, intent or plan. He consented to taking Maintenna. He declined an offer to extend his hospitalization voluntarily to permit observation and further med adjustments if need be. Attempt at referral for case management was not successful due to his insurance. Pt may be discharged tomorrow if he continues to request this. (1) Cannabis use disorder, severe, in early remission: (2) Schizophrenia: Plan 08/22/24: Pacing and mild agitation may be a response to the milieu (agitated peer). Lorazepam PO 1mg now x 1 ordered. Abilify Maintenna 400mg ordered. Administer today and observe overnight. Pt does not currently evidence behavior meeting criteria for a 302. He may be discharged tomorrow with 2 weeks' of Abilify 15 mg PO daily. Recommend follow up with PCP. 08/21/24: Increase Abilify to 15mg po daily. Have discussed conversion to OROPEZA; pt indicated willingness to do so. Hospitalist consult noted with thanks. "Patient has N/V, likely due to constipation and unlikely to be d/t cannabis since patient discontinued his marijuana use over a month ago and had a lack of sx while smoking #Nausea/Vomiting - begin 17g Miralax PO daily as tolerated - continue Zofran PRN for nausea - monitor for worsening of symptoms" 08/20/24: continue current medication. 08/19/24: Continue Abilify 10 mg daily with plan to titrate the dose and convert to OROPEZA if effective. Continue to monitor fluid intake for now. 08/18/24: Admit to U. Observation: moderate; q15 minute checks. Individual, group and milieu therapy. Standard prns. Resume Abilify at 5mg daily with plan to titrate. If effective, will consider converting this to OROPEZA. Hold Seroquel for now. For vomiting, ordered Zofran 4 mg prn vomiting. Obtain collateral information from mother when pt is available. Overall, I spent a total of 40 minutes on this case including meeting with the patient, reviewing the chart, nursing report, placing orders, gathering collateral and documentation. Suicide Risk Level Suicide Risk Level: Low (q15 min observation checks) Risk Factors Assessment Male: Yes : Yes Do You Have Access To A Gun?: No Health Problems: Yes Mental Health Diagnoses: Yes Substance Use Disorders: Yes Previous Attempt: Yes Family History of Suicide: No Previous Psychiatric Hospitalization: Yes Hopelessness: No Protective Factors Assessment Church Beliefs: No : No Responsible for Young Children: No Employed: No Stable Relationships: Yes Supportive Family: Yes Good Rapport with Provider: Yes Absence of Any Risk Factors Above: No Interval History Identifying Information 24-year-old M who currently lives in [place], [place] with his mother, Sharon. He has a history of Schizophrenia and was admitted on 08/18/24 09:25 on a 201 voluntary commitment for bizarre behavior. Chief Complaint "[]". Review of Systems Sleep Information Total Hours of Sleep: 5.75 Sleep Comments: Awoke early in morning Meal Information Percent Meal Consumed - Breakfast: 50 Percent Meal Consumed - Lunch: 90 Percent Meal Consumed - Dinner: 100 Subjective Subjective Patient was seen & assessed and interval progress reviewed with treatment team. Physical Exam Vital Signs (Past 24 Hours) Last Vital Signs Temp 36.7 C 08/23/24 06:19 Pulse 96 H 08/23/24 06:20 Resp 18 08/23/24 06:19 BP 126/88 08/23/24 06:20 Pulse Ox 99 08/19/24 13:23 O2 Del Method Room Air 08/19/24 13:23 Results & Data ([facility]) Current Inpatient Medications Current Inpatient Medications: Current Inpatient Medications Acetaminophen (Acetaminophen 325 Mg Tab) 650 mg PO Q4H PRN PRN Reason: Headache or Minor Fever Stop: 09/17/24 10:07 Last Admin: 08/21/24 08:02 Dose: 650 mg Al Hydrox/Mg Hydrox/Simethicone (Aluminum/Magnesium Susp 30 Ml Udc) 30 ml PO Q4H PRN PRN Reason: GI Upset Stop: 09/17/24 10:07 Aripiprazole (Aripiprazole 15 Mg Tab) [facility] [place] Stop: 09/21/24 08:59 Last Admin: 08/23/24 08:35 Dose: 15 mg Bismuth Subsalicylate (Bismuth Subsalicylate 262 Mg Chew) 2 tab PO Q30M PRN PRN Reason: Loose Stool/Diarrhea Stop: 09/17/24 10:07 Hydroxyzine HCl (Hydroxyzine Hcl 25 Mg Tab) 50 mg PO HSZ PRN PRN Reason: Insomnia Stop: 09/17/24 10:07 Last Admin: 08/22/24 20:41 Dose: 50 mg Hydroxyzine HCl (Hydroxyzine Hcl 25 Mg Tab) 25 mg PO Q4H PRN PRN Reason: Anxiety Stop: 09/17/24 10:07 Last Admin: 08/23/24 04:44 Dose: 25 mg Magnesium Hydroxide (Magnesium Hydroxide Susp 30 Ml Udc) 30 ml PO DAILY PRN PRN Reason: Constipation Stop: 09/17/24 10:07 Last Admin: 08/21/24 18:12 Dose: 30 ml Miscellaneous (Remove Nicoderm Patch) 1 each N/A DAILY@[id number] [facility] Stop: 09/18/24 08:58 Last Admin: 08/23/24 08:50 Dose: 1 each Nicotine (Nicotine 14 Mg/24 Hr Patch) 1 patch TD [facility] Stop: 09/17/24 13:29 Last Admin: 08/23/24 08:50 Dose: 1 patch Nicotine Polacrilex (Nicotine Polacrilex 2 Mg Gum) 1 piece MT Q2H PRN PRN Reason: smoking cessation Stop: 09/17/24 13:26 Ondansetron HCl (Ondansetron 4 Mg Od Tab) 4 mg PO Q6H PRN PRN Reason: Nausea Stop: 09/17/24 11:26 Last Admin: 08/19/24 13:26 Dose: 4 mg Polyethylene Glycol (Polyethylene (Miralax) 17 Gm Pack) 17 gm PO DAILY [facility] Stop: 09/20/24 10:14 Last Admin: 08/23/24 08:35 Dose: 17 gm Sodium Chloride (Sodium Chloride 0.65% Na Soln 45 Ml ([place])) 1 - 2 sprays NA PRN PRN PRN Reason: Nasal Dryness/Congestion Stop: 09/17/24 10:07 Mental Health & Subst Abuse Tx Psychiatrist Name of Psychiatrist: [facility]Monik Christianson Psychiatrist's Date Of Appointment With Psychiatric Provider: 08/24 and 08/25 Time of Appointment with Psychiatrist: 11:30am Psychiatric Appointment Comment: Phone appt on 08/24 at 11:30am and appt on 08/25 with provider Therapist Name of Therapist: None Energy Advisor Name of Energy Advisor: None Post Discharge Appointments Primary Care Physician Name Of Family Doctor/PCP: [facility] Date of Future Appointment with PCP: 08/31 Time of Appointment with PCP: 1:40pm Provider Appointment Comment: Arrival time of 1:25pm for 1:40pm appt Contact Information Discharge Discharge Address: [address] [place] [address] J[place] Dennis [phone] (2) Schizophrenia Schizophrenia type: unspecified Qualified Code(s): F20.9 - Schizophrenia, unspecified
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
== END 2024-08-23 12:05 | disposition home or self-care (01) | DRG 885 ==
LOC: ED 02:29 → 3S 09:17 → SUATTDRO 09:25
DX: M48.56XA Collapsed vertebra, not elsewhere classified, lumbar region, initial encounter for fracture; F20.9 Schizophrenia, unspecified; F12.21 Cannabis dependence, in remission; K59.00 Constipation, unspecified